=== PATIENT | male | born 1985 | race Caucasian/White ===

== ENCOUNTER 2016-09-08 01:49 | Emergency (ER) | payer MEDICARE ==
[~2016-09-08 01:49] MED LIST: COMPLERA TABLE1 EACH PO; LEVAQUIN250 MG PO
== END 2016-09-08 02:47 | disposition home or self-care (01) ==
LOC: ER1 01:49
DX: Z53.21 Procedure and treatment not carried out due to patient leaving prior to being seen by health care provider (principal)